=== PATIENT | female | born 1950 | race Caucasian/White ===

== ENCOUNTER 2018-11-24 11:48 | Outpatient (REF) | payer MEDICARE, OTHER, SELFPAY ==
[2018-11-24 13:16] LABS: HCT 43.4 % (36.0-46.0); HGB 14.5 g/dL (12.0-15.5); Mean Corp. HGB Concentration 33.4 g/dL (32.0-36.0); Mean Corpuscular Hemoglobin 31.3 pg (27.0-33.0); Mean Corpuscular Volume 93.7 fL (80-95); Mean Platelet Volume 10.6 fL (8.0-11.0); Platelet Count 289 x1000/uL (130-400); RBC 4.63 m/cumm (4.00-5.20); RBC Distribution Width 13.6 % (11.7-14.6); White Blood Cell Count 6.02 k/cumm (4.4-10.8)
[2018-11-24 14:23] LABS: ALT 45 U/L (12-78); AST 23 U/L (15-37); Albumin 3.9 g/dL (3.4-5.0); Alkaline Phosphatase 104 U/L (46-116); Anion Gap 11.8 mmol/L (3-11); BUN 16 mg/dL (7-18); Bilirubin, Total 0.3 mg/dL (0.2-1.0); CO2 26.2 mmol/L (21.0-32.0); CREATININE 0.97 mg/dL (0.55-1.02); Calcium 9.4 mg/dL (8.5-10.1); Chloride 102 mmol/L (98-107); Cholesterol 293 mg/dL (50-200); Estimated GFR 57.28 (mL/min/1.73m2); Glucose 144 mg/dL (70-100); HDL Cholesterol 48 mg/dL (40-60); LDL CHOLESTEROL 200 mg/dL (<100); Potassium 4.1 mmol/L (3.5-5.1); Sodium 140 mmol/L (136-145); TSH (W/Ref FT4) 5.35 uIU/mL (0.358-3.74); Total Protein 7.4 g/dL (6.4-8.2); Triglyceride 210 mg/dL (30-150)
[2018-11-24 14:39] LABS: FREE T4 1.01 ng/dL (0.76-1.46)
== END 2018-11-24 12:08 ==
LOC: NCHCN 11:48
PROVIDERS: PCP Family Medicine; Visit Provider Family Medicine
DX: E03.9 Hypothyroidism, unspecified (principal)
CPT/HCPCS: 80053; 80061; 83721; 85027; 84439; 84443

== ENCOUNTER 2018-12-04 00:53 | Outpatient (CLI) | payer MEDICARE, OTHER, SELFPAY ==
--- NOTE | 2018-12-04 11:36 | DI.MAMMO_ITS ---
SYMPTOMS/DIAGNOSIS: SCREENING, Z12.31 MAMMOGRAMS: Mammograms were interpreted according to the usual protocol including computer analysis with CAD system, tomosynthesis and C view imaging. The breast tissue is of moderate radiodensity. When compared with previous images, again noted is an area of increased density in the subareolar portion of the left breast, unchanged. There is no evidence of a dominant mass. There are no suspicious calcifications. SUMMARY: No evidence of malignancy, category 2. Yearly screening mammography is recommended. Breast density category B. MQSA ASSESSMENT OF FINDINGS: Negative with benign findings. Category 2. Patient will receive a letter notifying them of these results. BI-RADS category B. There are scattered areas of fibroglandular density.
== END 2018-12-04 01:13 ==
PROVIDERS: PCP Family Medicine; Visit Provider Family Medicine
DX: Z12.31 Encounter for screening mammogram for malignant neoplasm of breast (principal)
CPT/HCPCS: 77063; 77067

== ENCOUNTER 2019-01-16 01:14 | Outpatient (CLI) | payer MEDICARE, OTHER, SELFPAY ==
--- NOTE | 2019-01-16 07:51 | DI.US_ITS ---
SYMPTOM/DIAGNOSIS: SCREENING FOR AAA, FAMILY H/O AAA, Z82.49 AORTA ULTRASOUND: The abdominal aorta was evaluated sonographically. No evidence of an abdominal aortic aneurysm is seen. Largest diameter of the abdominal aorta is seen proximal to the renal arteries and measures 2.7 cm. in diameter. The right iliac artery diameter is 1.5 cm. The left iliac artery diameter is 1.3 cm. IMPRESSION: No evidence of an abdominal aortic aneurysm.
== END 2019-01-16 01:34 ==
PROVIDERS: PCP Family Medicine; Visit Provider Family Medicine
DX: Z82.49 Family history of ischemic heart disease and other diseases of the circulatory system (principal); Z13.6 Encounter for screening for cardiovascular disorders
CPT/HCPCS: 76706

== ENCOUNTER 2019-03-30 09:30 | Outpatient (REF) | payer MEDICARE, OTHER, SELFPAY ==
[2019-03-30 13:48] LABS: ALT 35 U/L (14-59); AST 18 U/L (15-37); Albumin 3.8 g/dL (3.4-5.0); Alkaline Phosphatase 106 U/L (46-116); Bilirubin, Total 0.4 mg/dL (0.2-1.0); Calculated LDL 116 mg/dL; Cholesterol 199 mg/dL (50-200); Glucose 105 mg/dL (70-100); HDL Cholesterol 54 mg/dL (40-60); TSH (W/Ref FT4) 1.84 uIU/mL (0.36-3.74); Total Protein 7.2 g/dL (6.4-8.2); Triglyceride 149 mg/dL (30-150)
[2019-03-30 14:30] LABS: Hemoglobin A1C 6.2 % (4.5-6.2)
== END 2019-03-30 09:50 ==
LOC: NCHCN 09:30
PROVIDERS: PCP Family Medicine; Visit Provider Family Medicine
DX: E03.9 Hypothyroidism, unspecified (principal); E78.00 Pure hypercholesterolemia, unspecified; R73.9 Hyperglycemia, unspecified
CPT/HCPCS: 80061; 80076; 82947; 83036; 84443

== ENCOUNTER 2020-02-09 01:01 | Outpatient (CLI) | payer MEDICARE, OTHER, SELFPAY ==
--- NOTE | 2020-02-09 | DI.MAMMO_ITS ---
EXAM: MAMMO SCREENING CLINICAL HISTORY: SCREENING,Z12.31 TECHNIQUE: Mammograms were interpreted according to the usual protocol including computer analysis w [employer] CAD system, tomosynthesis and C-view imaging. COMPARISON: FINDINGS: Breasts are of moderate density with fairly symmetrical distribution of fibroglandular tissue. No do minant mass or clumped microcalcification is identified in either breast. The current examination is compared with previous examinations including November 2018 and there has been no significant interval ch graham in appearance in comparison with the prior studies. IMPRESSION: No specific evidence of malignancy at this time. Routine screening examinations are suggested at yea rly intervals in this age group according to the ACS ACR guidelines. BI-RADS Category 1 - Negative Breast Density - Category B - Scattered areas of fibroglandular density
== END 2020-02-09 01:21 ==
PROVIDERS: PCP Family Medicine; Visit Provider Family Medicine
DX: Z12.31 Encounter for screening mammogram for malignant neoplasm of breast (principal); R92.2 Inconclusive mammogram
CPT/HCPCS: 77063; 77067

== ENCOUNTER 2021-04-26 01:15 | Outpatient (CLI) | payer MEDICARE, OTHER, SELFPAY ==
--- NOTE | 2021-04-26 15:04 | DI.MAMMO_ITS ---
Exam(s) MAMMO SCREENING EXAM: MAMMO SCREENING CLINICAL HISTORY: SCREENING, Z12.31 TECHNIQUE: Bilateral full field digital CC and MLO mammographic images were obtained with 3D tomosyn thesis and utilizing computer aided detection (CAD). COMPARISON: Available for comparison. FINDINGS: Masses/Architectural Distortion: None seen. Microcalcifications: No suspicious pleomorphic-type are seen. Skin Thickening/Nipple Retraction: None. IMPRESSION: 1. No significant interval change with no specific features of malignancy noted. 2. Unless there is more urgent need, screening mammography is recommended, as per [employer] guidelines. BI-RADS Category 1 - Negative Breast Density - Category B - Scattered areas of fibroglandular density Breast density category C or D implies that the patient has dense breast tissue. Dense breast tissue is very common and is not abnormal but dense breast tissue can make it harder to find cancer on a ma mmogram. Also, dense breast tissue may increase their breast cancer risk. This information about the result of the mammogram report was provided to the patient to raise their awareness. Use this report when you speak with the patient about their risks for breast cancer, which includes their family hist ory. At that time, you may recommend for more screening tests (Ultrasound or MRI) as they might be us eful based on their risk. A negative radiographic report should not delay biopsy if a dominant or clinically suspicious mass is present. Up to ten percent of cancers are not identified on mammography. A negative report may reinforce clinical impression. Adenosis and dense breasts may obscure an underlying neoplasm. False positive reports average 6 to 10%. Patient will receive a letter notifying them of these results.
== END 2021-04-26 01:35 ==
PROVIDERS: PCP Family Medicine; Visit Provider Family Medicine
DX: Z12.31 Encounter for screening mammogram for malignant neoplasm of breast (principal)
CPT/HCPCS: 77063; 77067

== ENCOUNTER 2021-12-09 04:55 | Emergency (ER) | payer MEDICARE, OTHER, SELFPAY ==
[2021-12-09 05:05] VITALS: BP 140/73; PULSE 80; RESP 14; TEMP 36.3; O2SAT 97
--- NOTE | 2021-12-09 05:14 | ED.GENADUL_ITS ---
Discharge Plan Disposition Patient Disposition: HOME Condition: Good Discharge Details Clinical Impression: Back sprain Primary Care Provider: Asahnti Choi ED Provider: Patel Ferraro Home Meds and New Rx's Prescriptions: New lidocaine [Lidoderm] 5 % adhesive patch,medicated 1 patch Topical Q24H Qty: 15 0RF cyclobenzaprine 10 mg tablet 10 mg PO TID Qty: 14 0RF prednisone 50 mg tablet 50 mg PO DAILY Qty: 5 0RF No Action atorvastatin 10 mg tablet 1 tab PO HS Label Comments: TAKE ONE TABLET BY MOUTH EVERY EVENING levothyroxine 100 mcg tablet 1 tab PO DAILY Label Comments: TAKE ONE TABLET BY MOUTH ONE TIME DAILY losartan 100 mg tablet 1 tab PO DAILY Label Comments: TAKE ONE TABLET BY MOUTH ONE TIME DAILY hydrochlorothiazide 12.5 mg tablet 1 tab PO DAILY Label Comments: TAKE ONE TABLET BY MOUTH ONE TIME DAILY Discharge Instructions Instructions: Acute Low Back Pain (ED) Additional Instructions: At this time your signs and symptoms are clinically consistent with a back sprain. This can cause significant pain and take a fair bit of time to heal. I expect 1 to 2 months for potential resolution. In the meantime do not lift anything greater than 5 pounds for the next 2 weeks. Avoid any significant vigorous physical activity. Perform easy gentle regular activities at home without any significant bending or lifting. Please take the steroids as directed. You have been given a prescription for Lidoderm patch. If your insurance does not cover this you can get [id number] Lidoderm patches at 4% which are almost just as effective. Please take the Flexeril as directed but do not take it when driving or operating any vehicles or heavy machinery, swimming, taking long baths, or operating firearms. Please use a heating pad as often as possible on your back. Perform daily gentle stretches on your back. Please continue to take the Tylenol and Motrin. You can take 1000 mg of Tylenol every 6 hours and 600 mg of ibuprofen every 6 hours, however these are the maximum doses. If you notice any worsening of your symptoms, or any new symptoms such as vomiting, diarrhea, fever, chills, shortness of breath, chest pain, numbness or tingling in your groin or legs, weakness in your legs, loss of control for your bowels or bladder, or fainting , please return immediately to the emergency department for reevaluation. Please follow up with your primary care provider as soon as possible for reassessment and reevaluation. As always, it was a pleasure participating in your medical care today. Referrals: Ashanti Choi [Primary Care Provider] - Medical Decision Making This is a 71-year-old female with a past medical history of hypertension, high cholesterol, and thyroid disease, she presents today for evaluation of back pain. She states that she has thrown her back out in the past, and for the last few days she has had mild achiness in her back after regular work. They have been organizing her house for an expected move in 26 days. However she states that yesterday they went for a long trip in the car, and when she got out of her car she felt her left lower back spasm, and has had notable pain since then. She did take Tylenol and Motrin with only limited relief. Patient denies any saddle anesthesia, numbness or tingling in the groin, change in sensation when wiping. Patient denies any change in sensation during sexual intercourse, bowel or bladder incontinence, leakage, or retention. Patient denies any weakness in the lower extremities, atypical falls or imbalance. She denies any IV or illicit drug use. She denies any urinary frequency or hematuria or history of kidney stones. She is not on any blood thinners. She denies any fever or chills. Physical exam demonstrates notable left paraspinal spasm and pain in the left lower lumbar region. No concerning clinical red flags for cauda equina syndrome, fracture, or neurovascular compromise. Symptoms inconsistent with kidney stone. Symptoms at this time appear clinically consistent with lumbar back sprain of muscular origin. We will treat with NSAIDs, muscle relaxant, steroids and Lidoderm patch. Recommend heating pad at home. Discussed red flags that would necessitate prompt return and reassessment. I have extensively reviewed the treatment plan and discharge instructions with the patient. I have addressed all patient concerns at this time. The patient was made aware of what symptoms to monitor for that would warrant a return to the emergency department. Discussed the plan with the patient, they demonstrate verbal understanding and agreement with our assessment and plan at this time. The documentation in this chart was dictated using [employer] dictation software. Please excuse any dictation errors. HPI General Date/Time Provider Initiated Documentation: 12/09/21 04:57 . HPI Narrative: This is a 71-year-old female with a past medical history of hypertension, high cholesterol, and thyroid disease, she presents today for evaluation of back pain. She states that she has thrown her back out in the past, and for the last few days she has had mild achiness in her back after regular work. They have been organizing her house for an expected move in 26 days. However she states that yesterday they went for a long trip in the car, and when she got out of her car she felt her left lower back spasm, and has had notable pain since then. She did take Tylenol and Motrin with only limited relief. Patient denies any saddle anesthesia, numbness or tingling in the groin, change in sensation when wiping. Patient denies any change in sensation during sexual intercourse, bowel or bladder incontinence, leakage, or retention. Patient denies any weakness in the lower extremities, atypical falls or imbalance. She denies any IV or illicit drug use. She denies any urinary frequency or hematuria or history of kidney stones. She is not on any blood thinners. She denies any fever or chills. Related Data Home Medications Medication Instructions Recorded Confirmed atorvastatin 10 mg tablet 1 tab PO HS 12/09/21 12/09/21 cyclobenzaprine 10 mg tablet 10 mg PO TID #14 tabs 12/09/21 hydrochlorothiazide 12.5 mg tablet 1 tab PO DAILY 12/09/21 12/09/21 levothyroxine 100 mcg tablet 1 tab PO DAILY 12/09/21 12/09/21 lidocaine 5 % topical patch 1 patch topical Q24H #15 ea 12/09/21 (Lidoderm) losartan 100 mg tablet 1 tab PO DAILY 12/09/21 12/09/21 prednisone 50 mg tablet 50 mg PO DAILY #5 tabs 12/09/21 Previous Rx's Medication Instructions Recorded cyclobenzaprine 10 mg tablet 10 mg PO TID #14 tabs 12/09/21 lidocaine 5 % topical patch 1 patch topical Q24H #15 ea 12/09/21 (Lidoderm) prednisone 50 mg tablet 50 mg PO DAILY #5 tabs 12/09/21 Allergies Allergy/AdvReac Type Severity Reaction Status Date / Time No Known Allergies Allergy Unverified 12/09/21 05:14 General Stated Complaint: Orthopedic CALEB: 3 Review of Systems All systems reviewed & are unremarkable except as noted in HPI and below PFSH All Active Problems Back sprain (Acute) Social History Smoking/Tobacco Use Status: Never Smoking risk assessment performed?: Yes Alcohol Intake: never Drug use: Never Substance use type: does not use Do you feel safe at home: Yes Do you feel safe in your relationship?: Yes Exam Narrative Exam Narrative: 1.Const: Well-nourished, Well-developed, appearing stated age 2.Eyes: PERRL, no conjunctival injection, and symmetrical lids. 3.ENT: Atraumatic external nose and ears. Moist MM. Neck: Symmetric, trachea midline, No thyromegaly. 4.CVS: +S1/S2, No murmurs or gallops. Peripheral pulses 2+ and equal in all extremities. Brisk capillary refill in all extremities. 5.RESP: Unlabored respiratory effort. Clear to auscultation bilaterally. No wheezes rales or rhonchi 6.GI: Soft, Nontender/Nondistended, No hepatosplenomegaly. No guarding or rebound. 7.MSK: Normocephalic/Atraumatic, Extremities w/o deformity or ttp No cyanosis or clubbing, Normal movement of all extremities No midline tenderness to palpation over the CTLS spine. Notable spasm in the left lower paraspinal vertebra. Mild tenderness in this area. Normal ROM in flexion, extension, side bend, and rotation. Patient has +5 out of 5 strength in the lower extremities in dorsiflexion and plantarflexion, knee flexion and extension, hip flexion and extension. Normal strength for dorsiflexion and plantar flexion of the great toe bilaterally. There is +2 over 2 dorsalis pedis pulses bilaterally. There is normal sensation to the skin with light touch at the foot, knee, and hip. Normal saddle sensation. Good sensation over the deep sural nerve area bilaterally. Rectal exam demonstrates excellent rectal tone and excellent perirectal. patellar reflexes are. +5 out of 5 strength in the medial, ulnar, radial nerve distribution bilaterally in the hands as well as intact light touch sensation to these dermatomes on the hands 8.Skin: Warm, Dry. No rashes or lesions. 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 Sensation grossly intact, no focal neurologic deficits. 10.Psych: (AAO) x3. Appropriate mood and affect Course Vital Signs Vital signs: Vital Signs Temperature 36.3 C L 12/09/21 05:05 Pulse 80 12/09/21 05:05 Respiratory Rate 14 12/09/21 05:05 Blood Pressure 140/73 12/09/21 05:05 Pulse Oximetry 97 12/09/21 05:05 Temperature 36.3 C L 12/09/21 05:05 Temperature Source Skin 12/09/21 05:05 Pulse 80 12/09/21 05:05 Respiratory Rate 14 12/09/21 05:05 Respiratory Effort Non-Labored 12/09/21 05:09 Blood Pressure 140/73 12/09/21 05:05 Blood Pressure Position Sitting 12/09/21 05:05 Pulse Oximetry 97 12/09/21 05:05 Oxygen Delivery Method Room Air 12/09/21 05:05 Oxygen Flow Rate 0 12/09/21 05:05 Pain Level 8 12/09/21 05:09
[2021-12-09] MEDS: Lidocaine 5% Patch 1 PATCH TP (05:25)
[2021-12-09] MEDS: predniSONE 20 MG TAB 60 MG PO (05:25)
[2021-12-09] MEDS: Cyclobenzaprine 10 MG TAB, 3 TABS/BTL PO (05:25)
[2021-12-09] MEDS: Ketorolac 30 MG/ML VIAL 15 MG IM (05:25)
[2021-12-09] MEDS: Acetaminophen 500 MG TAB 1000 MG PO (05:26)
[2021-12-09 05:35] VITALS: BP 140/73; PULSE 80; RESP 14; TEMP 36.3; O2SAT 97
== END 2021-12-09 09:00 | disposition home or self-care (01) ==
PROVIDERS: Emergency Provider Student in an Organized Health Care Education/Training Program; PCP Family Medicine
DX: S33.5XXA Sprain of ligaments of lumbar spine, initial encounter (principal); X50.1XXA Overexertion from prolonged static or awkward postures, initial encounter
CPT/HCPCS: 96372; 99284; 99283; J1885; J7512

== ENCOUNTER 2022-04-20 13:22 | Outpatient (REF) | payer MEDICARE, OTHER, SELFPAY ==
[2022-04-20 16:10] LABS: Hemoglobin A1C 6.6 % (<5.7)
[2022-04-20 16:20] LABS: ALT 48 U/L (14-59); AST 24 U/L (15-37); Albumin 4.2 g/dL (3.4-5.0); Alkaline Phosphatase 125 U/L (46-116); Anion Gap 9.6 mmol/L (3-11); BUN 19 mg/dL (7-18); Bilirubin, Total 0.3 mg/dL (0.2-1.0); CO2 29.4 mmol/L (21.0-32.0); CREATININE 0.8 mg/dL (0.55-1.02); Calcium 9.8 mg/dL (8.5-10.1); Calculated LDL 116 mg/dL (<100); Chloride 100 mmol/L (98-107); Cholesterol 228 mg/dL (<200); Estimated GFR 79.22 (mL/min/1.73m2); Glucose 143 mg/dL (74-106); HDL Cholesterol 61 mg/dL (40-60); Potassium 3.7 mmol/L (3.5-5.1); Sodium 139 mmol/L (136-145); Total Protein 7.9 g/dL (6.4-8.2); Triglyceride 259 mg/dL (<150)
== END 2022-04-20 13:23 | disposition home or self-care (01) ==
LOC: NCHCN 13:22
PROVIDERS: PCP Family Medicine; Visit Provider Nurse Practitioner Family
DX: I10 Essential (primary) hypertension (principal); R73.03 Prediabetes; E03.9 Hypothyroidism, unspecified; E78.00 Pure hypercholesterolemia, unspecified; J30.2 Other seasonal allergic rhinitis
CPT/HCPCS: 80053; 80061; 83036; 84443